=== PATIENT | female | born 1965 | race Caucasian/White ===

== ENCOUNTER → 2017-01-19 | Outpatient (CLI) | payer OTHER ==
[~2017-01-19] MED LIST: PROTONIX40 MG PO; SYNTHROID125 MCG PO; VASOTEC5 MG PO; VENLAFAXINE225 MG PO; VICODIN 5-3001 EACH PO; XANAX0.5 MG PO; ZOCOR20 MG PO
== END | disposition home or self-care (01) ==
LOC: OPR 01-17 08:00 → EDSTATUS 09:00
PROC: 0TB13ZX Excision of Left Kidney, Percutaneous Approach, Diagnostic (ICD-10-PCS; principal; 2017-01-19)
DX: N17.9 Acute kidney failure, unspecified (principal); R31.29 Other microscopic hematuria; R80.9 Proteinuria, unspecified
CPT/HCPCS: 77012; 88305 90; 88313 90; 88346 90; 88348 90; J3010